=== PATIENT | female | born 1980 | race Caucasian/White ===

== ENCOUNTER 2017-04-23 22:46 | Emergency (ER) | payer MEDICAID ==
--- NOTE | 2017-04-24 00:44 | ED Physician Chart ---
ED Chief Complaint/HPI - Patient Information Date Seen:: 04/24/17 Time Seen:: 00:44 Chief Complaint:: 13 weeks gestation and abnormal vaginal bleeding History of Present Illness:: 36 yo female, with 2 c-sections, currently is 13 weeks gestation, LMP , vaginal spotting 2 days ago, went to [facility] ER where blood and abdominal u/s which was normal, pelvic rest. 1 day ago, spotting became trace. Today, dark clot in the toilet after urinating. Intermittent abdominal cramp last 1 min interval about 1 hour for 2 days with the most painful cramp occurred 2 days ago. Nausea without vomiting. Denies fever or chills. Never experienced spotting during pervious . Allergies:: Allergies Allergy/AdvReac Type Severity Reaction Status Date / Time No Known Allergies Allergy Verified 04/23/17 23:11 Vitals:: Vital Signs - 8 hr 04/23/17 22:55 Temp 97.7 F HR 71 RR 18 BP 129/90 O2 Sat % 99 ED Review of Systems - Review of Systems General/Constitutional: No fever, No chills Skin: No skin lesions Head: Headache ( occured since spotting 2 days ago) Eyes: No loss of vision ENT: Nasal drainage, No nasal drainage Neck: No neck pain Cardio Vascular: No chest pain Pulmonary: No SOB GI: Nausea, No vomiting, No diarrhea, No melena G/U: No dysuria Workers Compensation Legal Secretary: Abnormal vaginal bleeding Musculoskeletal: Back pain Endocrine: No polyuria Psychiatric: No prior psych history ED Past Medical History - Past Medical History Past Medical History: HTN (hypertension occured at 11 weeks), Other (precenta previa, cholestasis) Family History: Diabetes Melitus, HTN Social History: Non Smoker, No Alcohol, No Drug Use Surgical History: (x 2) Psychiatricy History: None Family Medical History - Family Member Mother History Unknown: Yes ED Physical Exam - Physical Examination General/Constitutional: Well-developed, well-nourished, Alert, No distress Head: Atraumatic Eyes: PERRL, EOMI Skin: Nl inspection ENMT: External ears, nose nl Neck: Nontender, Full ROM w/o pain Respiratory: Clear to Auscultation, No Wheeze/Rhonchi/Rales Cardio Vascular: RRR, No murmur, gallop, rubs, NL S1 S2 Extremities: No tenderness or effusion, Full ROM Neuro/Psych: No focal deficits ED Assessment - Assessment General Assessment: 36 yo on 13 weeks gestation with vaginal spotting and abdominal cramp. [place] [address], which is higher than the level 2 days ago. This indicates viable tissue. In addition, the vaginal spotting stopped. The patient also has hyponatremia. Critical Care Time: 30 Excludes all billable procedures: Yes This condition life threatening/high prob of deterioration: No Assessment/Comments:: CBC, CMP, hCG NS 1L IV bolus Patient is stable for discharge and was instructed to follow up Workers Compensation Legal Secretary the next day. ED Septic Shock - . Is Septic Shock (SBP<90, OR Lactate>4 mmol\L) present?: No - <6hrs of presentation: Vital Signs: Vital Signs - 8 hr 04/23/17 22:55 Temp 97.7 F HR 71 RR 18 BP 129/90 O2 Sat % 99 ED Reassessment (Disposition) - Reassessment Reassessment Condition:: Improved - Aftercare/Follow up Instructions Aftercare/Follow-Up Instructions:: Counseled pt regarding lab results/diagnosis & need follow up, Refer to Discharge Instructions - Patient Disposition Discharge/Transfer:: Home ED Discharge Plan - Patient Disposition Admit/Discharge/Transfer: PT DISCHARGED HOME Instructions: Vaginal Bleeding During , First Trimester Additional Instructions: Follow up with primary care provider and OBGYN today. Return to ED if symptoms worsen. Return to ED with OB services. Forms: Work Release Form
[2017-04-24 01:08] LABS: % BASOPHILS 0.7 % (0.0-2.0); % EOSINOPHILS 1.3 % (0.0-5.0); % MONOCYTES 8.1 % (2.0-10.0); % NEUTROPHILS 65.9 % (40.0-80.0); HEMATOCRIT 36.4 % (41.0-60); HEMOGLOBIN 12.7 gm/dL (12-16); MEAN CELL VOLUME 83.1 fl (81-100); MEAN CORPUSCULAR HGB CONC 34.9 pg (28.0-36.0); MEAN PLATELET VOLUME 10.2 fl; NEUTROPHILE ABSOLUTE 4.4 Th/cmm (1.8-8.0); PLATELET COUNT 185 Th/cmm (150-400); RED BLOOD COUNT 4.38 Mil/cmm (3.80-5.10); RED CELL DISTRIBUTION WIDTH 14.1 % (11.5-20.0); WHITE BLOOD COUNT 6.6 Th/cmm (4.8-10.8)
[2017-04-24 01:20] LABS: ALB/GLOB RATIO 1.1 (1.0-1.8); ALKALINE PHOSPHATASE 105 U/L (34-104); ANION GAP 9.2 (7.0-16.0); BILIRUBIN,TOTAL 0.3 mg/dL (0.3-1.0); BUN - UREA NITROGEN 8 mg/dL (7-25); CALCIUM SERUM 8.6 mg/dL (8.6-10.3); CARBON DIOXIDE 23.4 mEq/L (21.0-31.0); CHLORIDE 101 mEq/L (98-107); CREATININE - SERUM 0.5 mg/dL (0.6-1.2); GLUCOSE 91 mg/dL (70-105); POTASSIUM SERUM 3.6 mEq/L (3.5-5.1); SGOT 16 U/L (13-39); SGPT/ALT 15 U/L (7-52); SODIUM SERUM 130 mEq/L (136-145)
[2017-04-24 01:29] LABS: INR 0.89 (0.5-1.4); PROTHROMBIN TIME (TEST) 9.2 SECONDS (9.5-11.5)
[2017-04-24] MEDS ORDERED: Sodium Chloride 0.9% 1,000 ML IV ONE (02:05)
== END 2017-04-24 04:00 | disposition home or self-care (01) ==
LOC: ER 22:46
DX: O46.91 Antepartum hemorrhage, unspecified, first trimester (principal); O16.1 Unspecified maternal hypertension, first trimester; Z3A.13 13 weeks gestation of pregnancy
CPT/HCPCS: 36415-UA; 80053-TC; 84702-TC; 84703-TC; 85025-TC; 85610-TC; J7030; Z7502